=== PATIENT | male | born 1960 | race Caucasian/White ===

== ENCOUNTER 2016-04-11 07:47 | Outpatient (CLI) | payer BC | END 2016-04-11 07:48 | disposition home or self-care (01) | DX: I10 Essential (primary) hypertension (principal); G47.33 Obstructive sleep apnea (adult) (pediatric); I48.91 Unspecified atrial fibrillation ==

== ENCOUNTER 2016-06-19 10:59 | Outpatient (CLI) | payer BC | END 2016-06-19 11:00 | disposition home or self-care (01) | DX: G47.33 Obstructive sleep apnea (adult) (pediatric) (principal) ==

== ENCOUNTER 2017-06-28 08:00 | Outpatient (CLI) | payer BC ==
[2017-06-29 10:45] LABS: PSA FREE 0.45 ng/mL (0.16-2.81)
[2017-06-29 10:46] LABS: PSA TOTAL 2.05 ng/mL (0.000-2.000)
== END 2017-06-28 08:01 | disposition home or self-care (01) ==
LOC: LAB.F 08:00
PROVIDERS: ATTEND Family Medicine
DX: R97.20 Elevated prostate specific antigen [PSA] (principal)
CPT/HCPCS: 36415; 84154